=== PATIENT | male | born 1970 | race Two or more races ===

== ENCOUNTER 2021-01-26 07:23 | Emergency (ER) | payer MEDICAID ==
[~2021-01-26] VITALS: Ht 172.7 cm; Wt 98.0 kg
[2021-01-26 07:28] VITALS: BP 157/96
--- NOTE | 2021-01-26 07:40 | NUR ---
SEEN AND EXAMINED BY .
[2021-01-26] MEDS ORDERED: ACETAMINOPHEN ES 500 MG TABLET ONE (07:50)
[2021-01-26] MEDS ORDERED: IBUPROFEN 600 MG TABLET ONE (07:51)
[2021-01-26] MEDS ORDERED: ACETAMINOPHEN ES 500 MG TABLET PO ONE (08:00)
[2021-01-26] MEDS ORDERED: IBUPROFEN 600 MG TABLET PO ONE (08:00)
--- NOTE | 2021-01-26 08:00 | NUR ---
PT IS WHEELED TO CT SCAN VIA [facility].
--- NOTE | 2021-01-26 08:59 | NUR ---
Patient discharged to home in stable condition. Written and verbal after care instructions given. Patient verbalizes understanding of instruction.
== END 2021-01-26 09:00 | disposition home or self-care (01) ==
LOC: ER 07:25
DX: M54.50 Low back pain, unspecified (principal); M54.2 Cervicalgia; V49.49XA Driver injured in collision with other motor vehicles in traffic accident, initial encounter; Y93.89 Activity, other specified; Y92.413 State road as the place of occurrence of the external cause; Y99.8 Other external cause status
CPT/HCPCS: 72050-TC; 72100-TC